=== PATIENT | female | born 1960 | race Asian ===

== ENCOUNTER 2017-03-19 17:25 | Emergency (ER) | payer OTHER ==
[~2017-03-19] VITALS: Ht 160 cm; Wt 56.7 kg
--- NOTE | 2017-03-19 17:45 | NUR ---
Per pt also c/o chest pain, pt placed in room 1a, stat EKG done and handed to .
[2017-03-19 18:10] LABS: BASOPHILS # (AUTO) 0.1 K/uL (0.0-8.0); BASOPHILS % (AUTO) 0.9 % (0.0-2.0); EOSINOPHILS # (AUTO) 0.2 K/uL (0.0-0.7); EOSINOPHILS % (AUTO) 2.3 % (0.0-7.0); HEMATOCRIT 36.7 % (31.2-41.9); HEMOGLOBIN 12.2 g/dL (10.9-14.3); LYMPHOCYTES % (AUTO) 27.1 % (20.5-51.5); MEAN CORPUSCULAR HGB CONC 33 g/dL (32.3-35.6); MEAN CORPUSCULAR VOLUME 90.1 fL (75.5-95.3); MONOCYTES # (AUTO) 0.7 K/uL (2.0-10.0); MONOCYTES % (AUTO) 9.2 % (0.0-11.0); NEUTROPHILS # (AUTO) 4.5 K/uL (1.8-8.9); NEUTROPHILS % (AUTO) 60.5 % (38.5-71.5); PLATELET COUNT (AUTO) 160 K/uL (179-408); RED BLOOD CELL COUNT(AUTO) 4.08 MIL/uL (3.63-4.92); WHITE BLOOD COUNT (AUTO) 7.4 K/uL (3.8-11.8)
[2017-03-19 18:11] LABS: CREATININE 0.8 mg/dL (0.6-1.3); POTASSIUM 4.1 mmol/L (3.5-5.1)
--- NOTE | 2017-03-19 18:18 | NUR ---
M[place]arin speaking pt presents to ED with a c/o right wrist and chest pain. Pt is poor historian. NSR on case monitor. breathing unlabored and even. will continue to monitor. pending re-eval.
[2017-03-19 19:16] VITALS: BP 133/78
== END 2017-03-19 19:15 | disposition home or self-care (01) ==
LOC: ER 17:25
DX: S63.612A Unspecified sprain of right middle finger, initial encounter (principal); X58.XXXA Exposure to other specified factors, initial encounter; Y93.89 Activity, other specified; Y92.89 Other specified places as the place of occurrence of the external cause; Y99.8 Other external cause status
CPT/HCPCS: 36415; 70030-TC; 71010; 85025; 85730; 93005; A4663